=== PATIENT | male | born 1990 | race African-American/Black ===

== ENCOUNTER → 2017-03-19 | Day surgery (SDC) | payer OTHER ==
[~2017-03-19] MED LIST: FLEXERIL PO; IBUPROFEN PO
--- NOTE | ~2017-03-19 | OR ---
Unit #: [id number] #: [id number] Patient: KAMERON GUEVARA [id number] [facility]. [place], [place] [address] [id number] MR#: [id number] NAME: KAMERON GUEVARA ROOM: Date of Procedure: 03/19/2017 Admission Date: 03/19/2017 Surgeon: Maxim Cain Jr., M.D. : 1990 Attending Physician: Maxim Cain Jr., M.D. Referring Physician: Maxim Cain Jr., M.D. Primary Care Physician: Sophia Stone M.D. OPERATIVE REPORT INDICATIONS FOR OPERATION The patient is a 26-year-old black male, who has been having problems with recurrent abscesses and sinuses draining in both axillary areas. He has had this chronically for sometime, but the left side was mostly the symptomatic side, but now he has symptoms on both sides. He is brought in this time at his request for excision of the skin and subcutaneous tissue of both axillae to eliminate his problem with hidradenitis suppurativum. PREOPERATIVE DIAGNOSIS Bilateral axillary hidradenitis suppurativum. POSTOPERATIVE DIAGNOSIS Bilateral axillary hidradenitis suppurativum. ANESTHESIA General with LMA. PROCEDURE PERFORMED Wide excision of skin and subcutaneous tissue of both axillae. DESCRIPTION OF PROCEDURE The patient was positioned in supine position. After being anesthetized, he was prepped and draped in routine fashion for excision of skin and subcutaneous tissue of both axillae. On the left side, there was elliptical incision made approximately 14 cm in length and shortest access was probably 10 cm. The incision was carried down through the skin and subcutaneous tissue with a #10 blade scalpel. Using the Bovie cautery, hemostasis was achieved and the rest of the tissue connections were then divided with Bovie cautery as well as a #10 blade scalpel. After the tissue was removed, it was sent to pathology. Hemostasis was achieved with Bovie cautery. The wound was irrigated and after total hemostasis was noted, the deeper subcutaneous tissue was approximated with interrupted 3-0 Vicryl sutures. Skin edges approximated with stainless-steel skin clips and skin stapling device. The deeper portion of the axilla was never entered, where the lymph nodes were found. The same procedure was performed on the right with the elliptical incision being made around the skin and subcutaneous tissue centrally in the axilla and after the tissue was removed, the wound was closed exactly in the same way. Sterile dressings and ointment were applied externally. Estimated blood loss for both procedures were less than 200 mL. The patient received less than 2000 mL crystalloid solution during the procedure. Sponges and instrument counts were correct x3. No drains used. No Unit #: [id number] #: [id number] Patient: KAMERON GUEVARA complications. The patient was taken to the recovery room with stable vital signs in satisfactory condition. Dictated by... Maxim Cain Jr. MBlanka CRUZ/jenn TD: 03/20/2017 02:51 JOB #: [id number] OPERATIVE REPORT Page 1 of 1 X Maxim Cain MD X PROCEDURE OPERATIVE NOTE
== END | disposition home or self-care (01) ==
LOC: CSUR 07:13
DX: L73.2 Hidradenitis suppurativa (principal); L72.0 Epidermal cyst; F41.9 Anxiety disorder, unspecified; F17.210 Nicotine dependence, cigarettes, uncomplicated; Z88.0 Allergy status to penicillin; Z79.2 Long term (current) use of antibiotics; Z98.890 Other specified postprocedural states
CPT/HCPCS: 88304; J0131; J1170; J1200; J1885; J2250; J2405; J3010; J3370

== ENCOUNTER 2017-03-28 02:45 | Emergency (ER) | payer OTHER | END 2017-03-28 07:46 | disposition home or self-care (01) | LOC: CED 02:45 | DX: M75.91 Shoulder lesion, unspecified, right shoulder (principal); F17.200 Nicotine dependence, unspecified, uncomplicated | CPT/HCPCS: 99282 ==